=== PATIENT | male | born 1985 ===

== ENCOUNTER 2016-07-10 21:55 | Emergency (ER) | payer OTHER ==
[2016-07-11] MEDS ORDERED: KETOROLAC TROMETHAMINE 60 MG/2 ML VIAL ONE (02:27)
[2016-07-11] MEDS ORDERED: DIPHENHYDRAMINE HCL 50 MG/1 ML VIAL ONE (02:27)
[2016-07-11] MEDS ORDERED: METOCLOPRAMIDE HCL 5 MG/ML 2ML VIAL ONE (02:27)
--- NOTE | 2016-07-11 07:33 | CT ---
HEAD W/O CON History: Intermittent headache. Comparison: None. Procedure: 1 mm axial images were obtained through the head from the vertex to the base of the skull without intravenous contrast. Stacked reconstructed 5 mm images were then obtained in the axial, coronal and sagittal planes. Findings: The lateral ventricles are of normal size and shape without evidence of hydrocephalus. No evidence of midline shift is seen. No mass or mass-effect is observed. No evidence of intra- or extra-axial fluid collections or hemorrhage is identified. The gr/white differentiation is within expected. The basilar cisterns remain uneffaced. The posterior fossa structures are unremarkable. No acute osseous abnormalities are identified. Impression: 1. Minimal ethmoid sinus disease. 2. An otherwise negative unenhanced CT scan of the head. The findings were called to the emergency room at 0210 hours, 07/11/2016, by [facility].
== END 2016-07-11 02:56 | disposition home or self-care (01) ==
LOC: ED 21:55
DX: G44.209 Tension-type headache, unspecified, not intractable (principal)
CPT/HCPCS: 70450; 99283 ×2; 96372 ×3; J1200; J2765; J1885